=== PATIENT | male | born 1990 | race Caucasian/White ===

== ENCOUNTER 2023-06-28 12:11 | Inpatient (IN) | payer OTHER ==
[2023-06-28 13:09] VITALS: BMI 30.7
[2023-06-28] MEDS ORDERED: LOPERAMIDE HCL 2 MG CAPSULE PO PRN (14:13)
[2023-06-28] MEDS ORDERED: ONDANSETRON *ODT* 4 MG TABLET SL PRN (14:13)
[2023-06-28] MEDS ORDERED: hydrOXYzine PAMOATE 25 MG CAPSULE (FP) PO PRN (14:13)
[2023-06-28] MEDS ORDERED: BISMUTH SUBSALICYLATE 524 MG/30 ML PO PRN (14:13)
[2023-06-28] MEDS ORDERED: POLYETHYLENE GLYCOL (HEALTHYLAX) 3350 17 GM PACKET PO PRN (14:13)
[2023-06-28] MEDS ORDERED: BENZONATATE 200 MG CAPSULE PO PRN (14:13)
[2023-06-28] MEDS ORDERED: METHOCARBAMOL 500 MG TABLET PO PRN (14:13)
[2023-06-28] MEDS ORDERED: DICYCLOMINE HCL 10 MG CAPSULE PO PRN (14:13)
[2023-06-28] MEDS ORDERED: MAGNESIUM HYDROX 2400MG/30ML ORAL SUSPENSION 30 ML CUP PO PRN (14:13)
[2023-06-28] MEDS ORDERED: IBUPROFEN 400 MG TABLET (FP) PO PRN (14:13)
[2023-06-28] MEDS ORDERED: MAG HYDROX/AL HYDROX/SIMETH 30 ML UNIT-DOSE CUP PO PRN (14:13)
[2023-06-28] MEDS ORDERED: ACETAMINOPHEN 325 MG TABLET (FP) PO PRN (14:13)
[2023-06-28] MEDS ORDERED: IBUPROFEN 600 MG TABLET (FP) PO PRN (14:13)
[2023-06-28] MEDS ORDERED: cloNIDine HCL 0.1 MG TABLET PO PRN (14:13)
[2023-06-28] MEDS ORDERED: BENZOCAINE/MENTHOL (CHLORASEPTIC ) LOZENGE MM PRN (14:13)
[2023-06-28] MEDS ORDERED: guaiFENesin 600 MG TABLET.ER (FP) PO PRN (14:13)
[2023-06-28] MEDS ORDERED: methaDONE HCL 10 MG TABLET (FOR DETOX USE ONLY) PO ONE (14:13)
[2023-06-28] MEDS ORDERED: NALOXONE HCL 0.4 MG/ML VIAL IM PRN (14:13)
[2023-06-28] MEDS ORDERED: NALOXONE HCL (KLOXXADO) 8 MG SPRAY NS PRN (14:13)
[2023-06-28] MEDS ORDERED: methaDONE HCL 10 MG TABLET (FOR DETOX USE ONLY) ONE (15:50)
[2023-06-28] MEDS: diazePAM 5 MG TABLET PO SCH ×2 (17:52→22:42)
[2023-06-28] MEDS: diazePAM 5 MG TABLET PO PRN (20:17)
[2023-06-28] MEDS ORDERED: MELATONIN 5 MG TABLETS PO SCH (22:00)
[2023-06-28] MEDS: THIAMINE HCL 100 MG TABLET (FP) PO SCH (22:42)
[2023-06-29] MEDS: diazePAM 5 MG TABLET PO SCH ×4 (05:30→22:55)
[2023-06-29] MEDS: PRENATAL VITAMINS W/ FOLIC ACID TABLET (FP) PO SCH (10:09)
[2023-06-29] MEDS ORDERED: NICOTINE POLACRILEX 2 MG GUM BUC PRN (13:04)
[2023-06-29] MEDS: diazePAM 5 MG TABLET PO PRN ×2 (13:30→19:05)
[2023-06-29 15:16] LABS: HEMATOCRIT 38.3 % (35.4-49); HEMOGLOBIN 12.4 GM/dL (11.7-16.9); MCH 27.2 pg (25.7-33.7); MCHC 32.4 g/dl (32.0-35.9); MEAN PLT VOLUME 9.8 fl (7.5-11.1); PLATELET COUNT 296 10^3/uL (134-434); RBC 4.55 M/mm3 (4.00-5.60); RDW 14.6 % (11.9-15.9); WHITE BLOOD COUNT 6.6 K/mm3 (4.0-10.0)
[2023-06-29 15:43] LABS: CHLORIDE 106 mmol/L (98-107); POTASSIUM 4.5 mmol/L (3.5-5.1); SODIUM 137 mmol/L (136-145)
[2023-06-29 15:45] LABS: CALCIUM 8.8 mg/dL (8.5-10.1)
[2023-06-29 15:46] LABS: ALBUMIN 3.6 g/dl (3.4-5.0); ANION GAP 2 mmol/L (4-13); BLOOD UREA NITROGEN 9.9 mg/dL (7-18); CO2 29 mmol/L (21-32); GLUCOSE,RANDOM 92 mg/dL (74-106)
[2023-06-29 15:49] LABS: CREATININE 0.7 mg/dL (0.55-1.3); SGOT/AST 13 U/L (15-37); SGPT/ALT 20 U/L (13-61)
[2023-06-29 15:51] LABS: BILIRUBIN,TOTAL 0.3 mg/dL (0.2-1); TOT PROT 6.8 g/dl (6.4-8.2)
[2023-06-29 15:52] LABS: ALK PHOS 78 U/L (45-117)
[2023-06-29] MEDS ORDERED: MELATONIN 5 MG TABLETS PO SCH (22:00)
[2023-06-29] MEDS: THIAMINE HCL 100 MG TABLET (FP) PO SCH (22:55)
[2023-06-30] MEDS: diazePAM 5 MG TABLET PO SCH ×2 (05:21→13:43)
[2023-06-30 09:18] VITALS: RESP 18
[2023-06-30] MEDS ORDERED: methaDONE HCL 10 MG TABLET (FOR DETOX USE ONLY) PO ONE (10:00)
[2023-06-30] MEDS: diazePAM 5 MG TABLET PO PRN (10:05)
[2023-06-30] MEDS: PRENATAL VITAMINS W/ FOLIC ACID TABLET (FP) PO SCH (10:05)
[2023-06-30 13:01] VITALS: BP 134/85; PULSE 78; TEMP 97.7
[2023-07-01] MEDS ORDERED: diazePAM 5 MG TABLET PO SCH (06:00)
[2023-07-02] MEDS ORDERED: diazePAM 5 MG TABLET PO ONE (06:00)
[2023-07-02] MEDS ORDERED: methaDONE HCL 10 MG TABLET (FOR DETOX USE ONLY) PO ONE (10:00)
== END 2023-06-30 14:00 | disposition left against medical advice (07) | DRG 770 ==
LOC: YASAS 12:11 → Y3N 14:20
PROVIDERS: ADMIT Allergy & Immunology; ATTEND Allergy & Immunology
PROC: HZ2ZZZZ Detoxification Services for Substance Abuse Treatment (ICD-10-PCS; principal; 2023-06-28)
DX: F11.23 Opioid dependence with withdrawal (principal); F13.230 Sedative, hypnotic or anxiolytic dependence with withdrawal, uncomplicated; F17.210 Nicotine dependence, cigarettes, uncomplicated; F19.282 Other psychoactive substance dependence with psychoactive substance-induced sleep disorder; F41.9 Anxiety disorder, unspecified; F51.05 Insomnia due to other mental disorder; F32.A Depression, unspecified; Z62.810 Personal history of physical and sexual abuse in childhood
CPT/HCPCS: 36415; 80053; 80307; 85027; 86780; 87635; 93005; 93010